=== PATIENT | male | born 1995 | race Caucasian/White ===

== ENCOUNTER 2019-03-22 03:04 | Observation (INO) | payer BC, OTHER ==
[~2019-03-22] VITALS: Ht 175.3 cm; Wt 81.5 kg
[2019-03-22] VITALS (18 sets, daily range): BP systolic 103–127; BP diastolic 59–70; PULSE 46–64; RESP 15–19; Ht 175.3 cm; Wt 81.5 kg
--- NOTE | 2019-03-22 04:57 | ERD ---
ER Documentation Chief Complaint Chief Complaint mid abdominal pain x 4 hours. vomiting 1x HPI 23-year-old male, previously healthy, presents to the emergency department, complaining of sudden onset mid abdominal pain 5 hours ago that radiates to the right lower quadrant, associated with nausea and vomiting x1. The pain is dull, constant, 6/10. The patient denies fever, no chills, no diarrhea or constipation. No history of abdominal surgeries. Last p.o. at 2100 ROS All systems reviewed and are negative except as per history of present illness. Allergies Allergies: Coded Allergies: No Known Drug Allergies (Verified Allergy, Unknown, 03/22/19) FmHx Family History: No diabetes, No coronary disease Physical Exam Vitals Vital Signs Date Temp Pulse Resp B/P (MAP) Pulse Ox O2 O2 Flow FiO2 Time Delivery Rate 03/22/19 97.6 71 18 132/80 100 03:11 (97) Physical Exam Patient alert, oriented, vital signs stable. HEAD: Normocephalic, atraumatic. EYES: PERRLA, EOMI, Sclera and conjunctiva appear normal. NOSE: Clear and patent nostrils. EARS: Canals clear, tympanic membranes WNL. MOUTH: normal lips and tongue, no oral lesions. THROAT: Normal oropharynx, no tonsillar exudates. NECK: Supple, No lymphadenopathy. Full ROM without pain or tenderness. HEART: RRR, no rubs, murmurs, clicks or gallops. LUNGS: Clear to auscultation. ABDOMEN: Guarded, tender to palpation in the right lower quadrant, + rebound, + McBurney. No masses or hepatosplenomegaly. EXTREMITIES: No edema bilaterally. BACK: Full ROM, no deformity, normal back exam NEURO: Cranial nerves grossly intact, no motor or sensory deficit SKIN: No rashes, no petechia. Result Diagram: 03/22/1917 03/22/1917 Results 24 hrs Laboratory Tests Test 03/22/19 05:17 White Blood Count 17.6 10^3/ul Red Blood Count 5.76 10^6/ul Hemoglobin 16.2 g/dl Hematocrit 48.5 % Mean Corpuscular Volume 84.2 fl Mean Corpuscular Hemoglobin 28.1 pg Mean Corpuscular Hemoglobin Concent 33.4 g/dl Red Cell Distribution Width 12.8 % Platelet Count 261 10^3/UL Mean Platelet Volume 9.4 fl Immature Granulocytes % 0.500 % Neutrophils % 84.5 % Lymphocytes % 10.1 % Monocytes % 4.2 % Eosinophils % 0.5 % Basophils % 0.2 % Nucleated Red Blood Cells % 0.0 /100WBC Immature Granulocytes # 0.080 10^3/ul Neutrophils # 14.9 10^3/ul Lymphocytes # 1.8 10^3/ul Monocytes # 0.7 10^3/ul Eosinophils # 0.1 10^3/ul Basophils # 0.0 10^3/ul Nucleated Red Blood Cells # 0.0 10^3/ul Urine Color YELLOW Urine Clarity CLEAR Urine pH 5.0 Urine Specific [place] 1.029 Urine Ketones NEGATIVE mg/dL Urine Nitrite NEGATIVE mg/dL Urine Bilirubin NEGATIVE mg/dL Urine Urobilinogen NEGATIVE mg/dL Urine Leukocyte Esterase NEGATIVE Michael/ul Urine Microscopic RBC 2 /HPF Urine Microscopic WBC 1 /HPF Urine Mucus MODERATE /HPF Urine Hemoglobin 1+ mg/dL Urine Glucose NEGATIVE mg/dL Urine Total Protein NEGATIVE mg/dl Sodium Level 144 mmol/L Potassium Level 4.5 mmol/L Chloride Level 104 mmol/L Carbon Dioxide Level 29 mmol/L Anion Gap 11 Blood Urea Nitrogen 15 mg/dl Creatinine 0.98 mg/dl Est Glomerular Filtrat Rate mL/min > 60 mL/min Glucose Level 113 mg/dl Calcium Level 9.9 mg/dl Total Bilirubin 0.5 mg/dl Direct Bilirubin 0.00 mg/dl Indirect Bilirubin 0.5 mg/dl Aspartate Amino Transf (AST/SGOT) 26 IU/L Alanine Aminotransferase (ALT/SGPT) 44 IU/L Alkaline Phosphatase 50 IU/L Total Protein 8.5 g/dl Albumin 4.9 g/dl Globulin 3.60 g/dl Albumin/Globulin Ratio 1.36 Lipase 207 U/L Current Medications Medications Dose Sig/Soco Start Time Status Last (Trade) Ordered Route PRN Stop Time Admin Dose Reason Admin Sodium 1,000 ml @ Q1H STAT 03/22/19 03/22/19 Chloride 1,000 mls/hr IV 05:08 05:35 03/22/19 06:07 Morphine 2 mg ONCE STAT 03/22/19 DC 03/22/19 Sulfate IV 05:08 05:35 (morphine) 03/22/19 05:30 Ondansetron 4 mg ONCE STAT 03/22/19 DC 03/22/19 HCl (Zofran IV 05:08 05:34 Inj) 03/22/19 05:30 Famotidine 20 mg ONCE STAT 03/22/19 DC 03/22/19 (Pepcid Iv) IV 05:08 05:34 03/22/19 05:30 Ibuprofen 400 mg ONCE ONCE 03/22/19 DC (Motrin) PO 05:30 03/22/19 05:31 Procedures/MDM Vital signs stable. Differential diagnosis include but not limited to: UTI, colitis, gastroenteritis, kidney stones, irritable bowel syndrome, inflammatory bowel syndrome, malabsorption syndrome, cholelithiasis, food intolerance, m edication side effect, pancreatitis, diverticulitis, bowel obstruction. Physical examination and clinical presentation consistent most likely with acute appendicitis. During the ED course the patient remained stable, no new complaints. The patient received treatment with IV fluids and IV medications. I will sign out this patient to Harmony Couch PA-C for further management and disposition. Disclaimer: Inadvertent spelling and grammatical errors are likely due to EHR/dictation software use and do not reflect on the overall quality of patient care. Also, please note that the electronic time recorded on this note does not necessarily reflect the actual time of the patient encounter. Departure Diagnosis: Primary Impression: Abdominal pain Condition: Stable JANET PHILLIPS MD March 22, 2019 04:57
[2019-03-22] MEDS ORDERED: FAMOTIDINE 20 MG INJ IV STA (05:08)
[2019-03-22] MEDS ORDERED: morphine 2 MG INJ IV STA (05:08)
[2019-03-22] MEDS ORDERED: ONDANSETRON 4 MG INJ IV STA (05:08)
[2019-03-22] MEDS ORDERED: SOD CHLORIDE 0.9% 1,000 ML IV STA (05:08)
[2019-03-22] MEDS ORDERED: IBUPROFEN 200 MG TAB PO ONE (05:30)
[2019-03-22] MEDS ORDERED: PIPER-TAZO 3.375 GM IV (PMX) 100 ML IVPB ONE (07:00)
[2019-03-22] MEDS ORDERED: SOD CHLORIDE 0.9% 1,000 ML IV SCH (07:43)
[2019-03-22] MEDS ORDERED: ONDANSETRON 4 MG INJ IV PRN ×4 (08:00→18:00)
[2019-03-22] MEDS ORDERED: ACETAMINOPHEN 325 MG TAB PO PRN ×2 (08:00→18:00)
[2019-03-22] MEDS ORDERED: morphine 2 MG INJ IV PRN ×2 (12:00→18:00)
[2019-03-22] MEDS ORDERED: DEXTROSE 5%-0.45% NACL 1,000 ML IV SCH (12:00)
[2019-03-22] MEDS: DOCUSATE SODIUM 250 MG CAP PO SCH (13:37)
--- NOTE | 2019-03-22 13:38 | HP ---
DATE OF ADMISSION: 03/22/2019 PRESENTING COMPLAINT: Abdominal pain. HISTORY OF PRESENTING COMPLAINT: A 23-year-old male with no past medical history who developed sudden acute abdominal pain to the umbilical area yesterday. The pain lasted for a few minutes and resolved on its own, but kept coming back. He had some nausea and vomiting x1. The pain recurred again . Eventually, the pain became fairly persistent and did not resolve once the patient reported to the Emergency Room where he was treated with pain medicine. CAT scan in the ER was consistent with early appendicitis and a retrocecal appendix. The patient has been admitted for continued management. PAST MEDICAL HISTORY: None. PAST SURGICAL HISTORY: None. ALLERGIES: No known drug allergies. SOCIAL HISTORY: Occasional marijuana use. Denies tobacco, alcohol or other illicit drug use. FAMILY HISTORY: Noncontributory. REVIEW OF SYSTEMS: Per HPI. PHYSICAL EXAMINATION VITAL SIGNS: Temperature 97.5, pulse 60, respirations 16, blood pressure 103/68, saturations 99% on room air. GENERAL: The patient is alert and oriented, no distress. HEENT: Head is normocephalic without evidence of trauma. Pupils are equal and reactive. Mucous membranes are moist. Posterior pharynx is clear of erythema and exudate. NECK: Supple without adenopathy or JVD. CHEST: Clear to auscultation with good air entry on both sides. CARDIOVASCULAR: Heart sounds S1 and S2 without added sounds, no murmurs. ABDOMEN: PE sore at this time in the right lower quadrant, as well as a little bit tender in the umbilical area, but otherwise his abdomen is nondistended and he does have bowel sounds. EXTREMITIES: Negative for edema or deformity. SKIN: Otherwise devoid of rash or jaundice. PSYCHIATRIC: He was calm, cooperative with exam. LABORATORY VALUES: Essentially his CBC was unremarkable, as was a complete metabolic profile, a CT of the abdomen as mentioned earlier did show a retrocecal edematous appendix measuring up to 12 mm. Periappendiceal inflammatory changes consistent with early appendicitis, as well as retained stool. Under CBC, patient did have a leukocytosis of 17,000 with a neutrophil predominance. ASSESSMENT: A 23-year-old male who presented with 1-day history of abdominal pain, admitted and managed for: 1. Acute appendicitis. 2. Chronic constipation. PLAN: Continue IV fluids and antibiotics for now, keep patient n.p.o., provide supportive care, pain control, general surgery consultation has been obtained with Dr. Sotelo via Emergency Room physician, along with his recommendations. Patient will likely benefit from appendectomy; however, will defer to him and further examination as well as dependent on clinical course. Plan of care was discussed with the patient in detail, questions have been answered. For information and clarification, please see patient's chart and my orders. Dictated By: DENNY PITTS MD, BA/ADOLFO Conf#: [id number] DID#: [id number] MTDD
--- NOTE | 2019-03-22 16:36 | PREAC ---
Date/Time of Note Date/Time of Note DATE: 03/22/19 TIME: 16:34 Anesthesia Eval and Record Evaluation Time Pre-Procedure Interview DATE: 03/22/19 TIME: 16:34 Age 23 Sex male NPO: 8 hrs Preoperative diagnosis ACUTE APPENDICITIS Planned procedure LAP APPENDECTOMY Past Medical History Past Medical History: None Surgery & Anesthesia Issues No known issue Meds Anticoagulation: No Beta Travis within 24 hr: No Reason Beta Travis not given: Pt. not on B-Travis No Active Prescriptions or Reported Meds Current Medications Ondansetron HCl (Zofran Inj) 4 mg BRIDGE ORDER PRN IV NAUSEA/VOMITING; Start 03/22/19 at 08:00; Stop 03/23/19 at 07:59 Acetaminophen (Tylenol Tab) 650 mg ER BRIDGE PRN PO .MILD PAIN 1-3 OR TEMP; Start 03/22/19 at 08:00; Stop 03/23/19 at 07:59 Ondansetron HCl (Zofran Inj) 4 mg Q6H PRN IV NAUSEA AND/OR VOMITING; Start 03/22/19 at 12:00 Morphine Sulfate (morphine) 2 mg Q4H PRN IV SEVERE PAIN LEVEL 7-10; Start 03/22/19 at 12:00 Dextrose/Sodium Chloride 1,000 ml @ 125 mls/hr Q8H IV Last administered on 03/22/19at 13:40; Admin Dose 125 MLS/HR; Start 03/22/19 at 12:00 Docusate Sodium (Colace) 250 mg DAILY PO ; Start 03/22/19 at 12:30 Meds reviewed: Yes Allergies Coded Allergies: No Known Drug Allergies (Verified Allergy, Unknown, 03/22/19) Allergies Reviewed: Yes Labs/Studies Labs Reviewed: Reviewed by anesthesiologist Result Diagram: 03/22/1951603/22/1917 Laboratory Tests 03/22/19 05:17 test: N/A Pre-procedure Exam Last vitals Vital Signs Date Temp Pulse Resp B/P (MAP) Pulse Ox O2 O2 Flow FiO2 Time Delivery Rate 03/22/19 98.5 61 16 104/59 98 15:02 (74) 03/22/19 Room Air 10:27 Airway: Adequate mouth opening, Adequate thyromental dist Mallampati: Mallampati II Teeth: Normal Lung: Normal Heart: Normal ASA Physical Status ASA physical status: 2 Emergency: None Planned Anesthetic General/MAC: ETT Nerve block: TAP Planned Pain Management Parenteral pain med Pre-operative Attestations Prior to commencing anesthesia and surgery, the patient was re-evaluated, there was verification of: *The patient's identity *The results of appropriate recent lab work and preoperative vital signs *The above evaluation not changing prior to induction *Anesthetic plan, risk benefits, alternative and complications discussed with patient/family; questions answered; patient/family understands, accepts and wishes to proceed. Tucker Reeves M.D. March 22, 2019 16:36
--- NOTE | 2019-03-22 16:45 | CONS ---
Assessment/Plan Assessment/Plan Assessment/Plan (Daily) Acute appendicitis I discussed laparoscopic, possible open, appendectomy. All benefits, risks, al ternatives discussed in detail. All questions were answered. The patient elects to proceed. Consultation Date/Type/Reason Admit Date/Time March 22, 2019 at 07:44 Date/Time of Note DATE: 03/22/19 TIME: 16:44 Hx of Present Illness The patient is a 23-year-old male who with acute onset of periumbilical pain yesterday before going to sleep. His symptoms then localized to right lower quadrant he had nausea and emesis. He presented to the ER 2:30 in the morning. His work-up was consistent with acute appendicitis I was called for consultation. Past Medical History Medical History: no pertinent history Home Meds No Active Prescriptions or Reported Meds Medications Current Medications Ondansetron HCl (Zofran Inj) 4 mg BRIDGE ORDER PRN IV NAUSEA/VOMITING; Start 03/22/19 at 08:00; Stop 03/23/19 at 07:59 Acetaminophen (Tylenol Tab) 650 mg ER BRIDGE PRN PO .MILD PAIN 1-3 OR TEMP; Start 03/22/19 at 08:00; Stop 03/23/19 at 07:59 Ondansetron HCl (Zofran Inj) 4 mg Q6H PRN IV NAUSEA AND/OR VOMITING; Start 03/22/19 at 12:00 Morphine Sulfate (morphine) 2 mg Q4H PRN IV SEVERE PAIN LEVEL 7-10; Start 03/22/19 at 12:00 Dextrose/Sodium Chloride 1,000 ml @ 125 mls/hr Q8H IV Last administered on 03/22/19at 13:40; Admin Dose 125 MLS/HR; Start 03/22/19 at 12:00 Docusate Sodium (Colace) 250 mg DAILY PO ; Start 03/22/19 at 12:30 Hydromorphone HCl (Dilaudid) 0.2 mg PACU PRN IV MILD PAIN 1-3; Start 03/22/19 at 17:00; Stop 03/22/19 at 22:00; Status UNV Hydromorphone HCl (Dilaudid) 0.4 mg PACU PRN IV MOD PAIN 4-6; Start 03/22/19 at 17:00; Stop 03/22/19 at 22:00; Status UNV Hydromorphone HCl (Dilaudid) 0.6 mg PACU PRN IV SEVERE PAIN 7-10; Start 03/22/19 at 17:00; Stop 03/22/19 at 22:00; Status UNV Fentanyl (Sublimaze) 25 mcg PACU ORDER PRN IV MILD PAIN 1-3; Start 03/22/19 at 17:00; Stop 03/22/19 at 22:00; Status UNV Fentanyl (Sublimaze) 50 mcg PACU ORDER PRN IV MOD PAIN 4-6; Start 03/22/19 at 17:00; Stop 03/22/19 at 22:00; Status UNV Fentanyl (Sublimaze) 75 mcg PACU ORDER PRN IV SEVERE PAIN 7-10; Start 03/22/19 at 17:00; Stop 03/22/19 at 22:00; Status UNV Oxycodone/ Acetaminophen (Percocet (5/ 325)) 1 tab PACU ORDER PRN PO .PAIN 1-5; Start 03/22/19 at 17:00; Stop 03/22/19 at 22:00; Status UNV Oxycodone/ Acetaminophen (Percocet (5/ 325)) 2 tab PACU ORDER PRN PO .PAIN 6-10; Start 03/22/19 at 17:00; Stop 03/22/19 at 22:00; Status UNV Ondansetron HCl (Zofran Inj) 4 mg PACU ORDER PRN IV NAUSEA/VOMITING; Start 03/22/19 at 17:00; Stop 03/22/19 at 22:00; Status UNV Trimethobenzamide HCl (Tigan) 200 mg PACU ORDER PRN IM NAUSEA/VOMITING; Start 03/22/19 at 17:00; Stop 03/22/19 at 22:00; Status UNV Labetalol HCl (Labetalol) 5 mg PACU ORDER PRN IV HIGH BLOOD PRESSURE; Start 03/22/19 at 17:00; Stop 03/22/19 at 22:00; Status UNV Hydralazine HCl (Apresoline) 5 mg PACU ORDER PRN IV HIGH BLOOD PRESSURE; Start 03/22/19 at 17:00; Stop 03/22/19 at 22:00; Status UNV Ephedrine Sulfate 5 mg PACU ORDER PRN IV BLOOD PRESSURE SUPPORT; Start 03/22/19 at 17:00; Stop 03/22/19 at 22:00; Status UNV Albuterol (Proventil 0.083% (Neb)) 2.5 mg PACU ORDER PRN HHN .WHEEZING; Start 03/22/19 at 17:00; Stop 03/22/19 at 22:00; Status UNV Ipratropium [place] (Atrovent 0.02% (Neb)) 0.5 mg PACU ORDER PRN HHN .WHEEZING; Start 03/22/19 at 17:00; Stop 03/22/19 at 22:00; Status UNV Meperidine HCl (Demerol) 25 mg PACU ORDER PRN IV .RIGORS; Start 03/22/19 at 17:00; Stop 03/22/19 at 22:00; Status UNV Diphenhydramine HCl (Benadryl) 25 mg PACU ORDER PRN IV .PRURITUS; Start 03/22/19 at 17:00; Stop 03/22/19 at 22:00; Status UNV Midazolam HCl (Versed) 0.5 mg PACU ORDER PRN IV .ANXIETY; Start 03/22/19 at 17:00; Stop 03/22/19 at 22:00; Status UNV Allergies: Coded Allergies: No Known Drug Allergies (Verified Allergy, Unknown, 03/22/19) Past Surgical History Past Surgical Hx: no surgical history Family History Significant Family History: no pertinent family hx Social History Alcohol Use: rarely Smoking Status: Never smoker Drug Use: none Exam/Review of Systems Exam Vitals Vital Signs Date Temp Pulse Resp B/P (MAP) Pulse Ox O2 O2 Flow FiO2 Time Delivery Rate 03/22/19 98.5 61 16 104/59 98 15:02 (74) 03/22/19 Room Air 10:27 Results Result Diagram: 03/22/19 0517 03/22/19 0517 Results 24hrs Laboratory Tests Test 03/22/19 05:17 03/22/19 12:19 White Blood Count 17.6 H Red Blood Count 5.76 Hemoglobin 16.2 Hematocrit 48.5 Mean Corpuscular Volume 84.2 Mean Corpuscular Hemoglobin 28.1 L Mean Corpuscular Hemoglobin Concent 33.4 Red Cell Distribution Width 12.8 Platelet Count 261 Mean Platelet Volume 9.4 Immature Granulocytes % 0.500 H Neutrophils % 84.5 H Lymphocytes % 10.1 L Monocytes % 4.2 Eosinophils % 0.5 Basophils % 0.2 Nucleated Red Blood Cells % 0.0 Immature Granulocytes # 0.080 H Neutrophils # 14.9 H Lymphocytes # 1.8 Monocytes # 0.7 Eosinophils # 0.1 Basophils # 0.0 Nucleated Red Blood Cells # 0.0 Urine Color YELLOW Urine Clarity CLEAR Urine pH 5.0 Urine Specific [place] 1.029 Urine Ketones NEGATIVE Urine Nitrite NEGATIVE Urine Bilirubin NEGATIVE Urine Urobilinogen NEGATIVE Urine Leukocyte Esterase NEGATIVE Urine Microscopic RBC 2 Urine Microscopic WBC 1 Urine Mucus MODERATE Urine Hemoglobin 1+ H Urine Glucose NEGATIVE Urine Total Protein NEGATIVE Sodium Level 144 Potassium Level 4.5 Chloride Level 104 Carbon Dioxide Level 29 Anion Gap 11 Blood Urea Nitrogen 15 Creatinine 0.98 Est Glomerular Filtrat Rate mL/min > 60 Glucose Level 113 Calcium Level 9.9 Total Bilirubin 0.5 Direct Bilirubin 0.00 Indirect Bilirubin 0.5 Aspartate Amino Transf (AST/SGOT) 26 Alanine Aminotransferase (ALT/SGPT) 44 Alkaline Phosphatase 50 Total Protein 8.5 H Albumin 4.9 Globulin 3.60 H Albumin/Globulin Ratio 1.36 Lipase 207 Prothrombin Time 12.3 Prothrombin Time Ratio 1.0 INR International Normalized Ratio 0.90 Activated Partial Thromboplast Time 29.1 Imaging Imaging DIAGNOSTIC IMAGING REPORT Patient: ALLYSSA MALAVE : 1995 Age: 23 Sex: M MR #: [id number] DOS: 03/22/19 0508 Ordering MD: JANET PHILLIPS MD Location: [facility] Room/Bed: PROCEDURE: CT ABDOMEN/PELVIS WITHOUT CONTRAST CLINICAL INDICATION: 23-year-old male with right lower quadrant pain. TECHNIQUE: The study was performed utilizing a [employer] VCT 64-slice CT scanner. Direct axial sections were obtained through the abdomen and pelvis without the use of intravenous contrast material. Sagittal and coronal reformations were obtained. One or more of the following dose reduction techniques were utilized: automated exposure control, adjustment of the mA and/or kV according to patient's size, use of iterative reconstruction technique. DICOM images are available. The images were reviewed on a PACS workstation. CTD/vol = 8.92 mGy; Total Exam DLP = 555.75 mGy.cm. COMPARISON: None. FINDINGS: The lung bases are unremarkable. There is no evidence for significant pleural effusion. The liver has a normal size and contour without focal areas of abnormal density. No intrahepatic nor extrahepatic biliary ductal dilatation is seen. The gallbladder demonstrates no wall thickening nor pericholecystic fluid. No biliary stones are evident. The pancreas is without areas of abnormal attenuation. The spleen is identified and has a normal size without abnormal density. The adrenal glands are unremarkable. The kidneys are without abnormal density. No hydroureteronephrosis nor nephroureterolithiasis is evident. The urinary bladder contains a small volume of urine. There is mild retained stool identified throughout the colon without evidence for bowel obstruction. The appendix is retrocecal and diffusely thickened edematous measuring up to 12 mm with minimal periappendiceal inflammatory changes consistent with early acute appendicitis. Shotty mesenteric/right lower quadrant lymph nodes are seen. There is no significant free fluid. The prostate is not enlarged. The aortoiliac vessels are without aneurysmal dilatation. The osseous structures are intact. IMPRESSION: 1. Diffusely retrocecal edematous appendix measuring up to 12 mm with minimal p eriappendiceal inflammatory changes most consistent with early acute appendicitis. 2. Retained stool throughout the colon without obstruction. 3. Shotty mesenteric lymph nodes. .Sandeep Rivera MD, Date Time Electronically viewed and signed by .Sandeep Rivera MD, MD on 03/22/2019 06:43 .M/ CC: JANET PHILLIPS MD [id number] Medications Medication Current Medications Ondansetron HCl (Zofran Inj) 4 mg BRIDGE ORDER PRN IV NAUSEA/VOMITING; Start 03/22/19 at 08:00; Stop 03/23/19 at 07:59 Acetaminophen (Tylenol Tab) 650 mg ER BRIDGE PRN PO .MILD PAIN 1-3 OR TEMP; Start 03/22/19 at 08:00; Stop 03/23/19 at 07:59 Ondansetron HCl (Zofran Inj) 4 mg Q6H PRN IV NAUSEA AND/OR VOMITING; Start 03/22/19 at 12:00 Morphine Sulfate (morphine) 2 mg Q4H PRN IV SEVERE PAIN LEVEL 7-10; Start 03/22/19 at 12:00 Dextrose/Sodium Chloride 1,000 ml @ 125 mls/hr Q8H IV Last administered on 03/22/19at 13:40; Admin Dose 125 MLS/HR; Start 03/22/19 at 12:00 Docusate Sodium (Colace) 250 mg DAILY PO ; Start 03/22/19 at 12:30 Hydromorphone HCl (Dilaudid) 0.2 mg PACU PRN IV MILD PAIN 1-3; Start 03/22/19 at 17:00; Stop 03/22/19 at 22:00; Status UNV Hydromorphone HCl (Dilaudid) 0.4 mg PACU PRN IV MOD PAIN 4-6; Start 03/22/19 at 17:00; Stop 03/22/19 at 22:00; Status UNV Hydromorphone HCl (Dilaudid) 0.6 mg PACU PRN IV SEVERE PAIN 7-10; Start 03/22/19 at 17:00; Stop 03/22/19 at 22:00; Status UNV Fentanyl (Sublimaze) 25 mcg PACU ORDER PRN IV MILD PAIN 1-3; Start 03/22/19 at 17:00; Stop 03/22/19 at 22:00; Status UNV Fentanyl (Sublimaze) 50 mcg PACU ORDER PRN IV MOD PAIN 4-6; Start 03/22/19 at 17:00; Stop 03/22/19 at 22:00; Status UNV Fentanyl (Sublimaze) 75 mcg PACU ORDER PRN IV SEVERE PAIN 7-10; Start 03/22/19 at 17:00; Stop 03/22/19 at 22:00; Status UNV Oxycodone/ Acetaminophen (Percocet (5/ 325)) 1 tab PACU ORDER PRN PO .PAIN 1-5; Start 03/22/19 at 17:00; Stop 03/22/19 at 22:00; Status UNV Oxycodone/ Acetaminophen (Percocet (5/ 325)) 2 tab PACU ORDER PRN PO .PAIN 6-10; Start 03/22/19 at 17:00; Stop 03/22/19 at 22:00; Status UNV Ondansetron HCl (Zofran Inj) 4 mg PACU ORDER PRN IV NAUSEA/VOMITING; Start at 17:00; Stop 03/22/19 at 22:00; Status UNV Trimethobenzamide HCl (Tigan) 200 mg PACU ORDER PRN IM NAUSEA/VOMITING; Start 03/22/19 at 17:00; Stop 03/22/19 at 22:00; Status UNV Labetalol HCl (Labetalol) 5 mg PACU ORDER PRN IV HIGH BLOOD PRESSURE; Start 03/22/19 at 17:00; Stop 03/22/19 at 22:00; Status UNV Hydralazine HCl (Apresoline) 5 mg PACU ORDER PRN IV HIGH BLOOD PRESSURE; Start 03/22/19 at 17:00; Stop 03/22/19 at 22:00; Status UNV Ephedrine Sulfate 5 mg PACU ORDER PRN IV BLOOD PRESSURE SUPPORT; Start 03/22/19 at 17:00; Stop 03/22/19 at 22:00; Status UNV Albuterol (Proventil 0.083% (Neb)) 2.5 mg PACU ORDER PRN HHN .WHEEZING; Start 03/22/19 at 17:00; Stop 03/22/19 at 22:00; Status UNV Ipratropium [place] (Atrovent 0.02% (Neb)) 0.5 mg PACU ORDER PRN HHN .WHEEZING; Start 03/22/19 at 17:00; Stop 03/22/19 at 22:00; Status UNV Meperidine HCl (Demerol) 25 mg PACU ORDER PRN IV .RIGORS; Start 03/22/19 at 17:00; Stop 03/22/19 at 22:00; Status UNV Diphenhydramine HCl (Benadryl) 25 mg PACU ORDER PRN IV .PRURITUS; Start 03/22/19 at 17:00; Stop 03/22/19 at 22:00; Status UNV Midazolam HCl (Versed) 0.5 mg PACU ORDER PRN IV .ANXIETY; Start 03/22/19 at 17:00; Stop 03/22/19 at 22:00; Status UNV AIXA SPEAR MD March 22, 2019 16:45
[2019-03-22] MEDS ORDERED: MIDAZOLAM 1 MG/ML 2 ML INJ IV PRN (17:00)
[2019-03-22] MEDS ORDERED: MEPERIDINE 25 MG INJ IV PRN (17:00)
[2019-03-22] MEDS ORDERED: IPRATROPIUM (NEB) 0.5 MG/2.5 ML AMP HHN PRN (17:00)
[2019-03-22] MEDS ORDERED: DIPHENHYDRAMINE 50 MG INJ IV PRN (17:00)
[2019-03-22] MEDS ORDERED: FENTAnyl 50 MCG/ML VIAL IV PRN ×3 (17:00)
[2019-03-22] MEDS ORDERED: EPHEDrine 25 MG/5 ML SYG IV PRN (17:00)
[2019-03-22] MEDS ORDERED: TRIMETHOBENZAMIDE 100 MG/ML VIAL IM PRN (17:00)
[2019-03-22] MEDS ORDERED: HYDROmorphONE 1 MG/5 ML IV SYRINGE IV PRN ×3 (17:00)
[2019-03-22] MEDS ORDERED: OXYCODONE/ACETAMINOPHEN (5/325) TAB PO PRN ×2 (17:00)
[2019-03-22] MEDS ORDERED: hydrALAzine 20 MG INJ IV PRN (17:00)
[2019-03-22] MEDS ORDERED: ALBUTEROL 0.083% (NEB) 2.5 MG/3 ML AMP HHN PRN (17:00)
[2019-03-22] MEDS ORDERED: DESFLURANE 15 MIN ONE (17:00)
[2019-03-22] MEDS ORDERED: LABETALOL HCL 20MG INJ IV PRN (17:00)
[2019-03-22] MEDS ORDERED: DEXAMETHASONE 4 MG/ML 5 ML INJ ONE (17:02)
[2019-03-22] MEDS ORDERED: CEFAZOLIN 1 GM INJ ONE (17:02)
[2019-03-22] MEDS ORDERED: ROCURONIUM 50 MG INJ ONE (17:02)
[2019-03-22] MEDS ORDERED: GLYCOPYRROLATE 0.4 MG INJ ONE (17:02)
[2019-03-22] MEDS ORDERED: PROPOFOL 20 ML ONE (17:02)
[2019-03-22] MEDS ORDERED: NEOSTIGMINE 3 MG/3 ML SYRINGE ONE (17:02)
[2019-03-22] MEDS ORDERED: MIDAZOLAM 1 MG/ML 2 ML INJ ONE (17:02)
[2019-03-22] MEDS ORDERED: FENTAnyl 50 MCG/ML VIAL ONE (17:02)
[2019-03-22] MEDS ORDERED: ONDANSETRON 4 MG INJ ONE (17:02)
[2019-03-22] MEDS ORDERED: BUPIVACAINE 0.25% (MPF) 30 ML INJ ONE (17:12)
[2019-03-22] MEDS ORDERED: LIDOCAINE 1%/EPI (1:100,000) (MDV) 20 ML ONE (17:12)
--- NOTE | 2019-03-22 17:18 | OPR ---
Date/Time of Note Date/Time of Note DATE: 03/22/19 TIME: 17:18 Operative Report Preoperative Diagnosis Acute appendicitis Postoperative Diagnosis Same Operation/Procedure Performed Laparoscopic appendectomy Surgeon see signature line Material Controller None Anesthesia Type: general Anesthesiologist: Tucker Reeves M.D. Estimated Blood Loss: minimal Transfusion none Specimen Appendix Grafts/Implants none Complications none Pt Condition Post Procedure: stable Disposition: PACU Indications The patient is a 23-year-old male with acute appendicitis. I discussed laparoscopic, possible open, appendectomy with the patient. All benefits, risks, alternatives were discussed in detail. All questions answered. The patient elected to proceed Procedure Description The patient was brought to operative room placed supine on the table. After preop antibiotics and SCDs were applied, the patient was intubated. The abdomen was cleaned, prepped, draped in usual sterile fashion. All incisions were infiltrated with half percent lidocaine with epinephrine. A 5 mm incision was made in the umbilicus. Using a 5 by laparoscope obtained trocar, the abdomen was was entered and insufflated to 15 mmHg CO2. The following trochars in place and direct vision: A right lower quadrant 5 mm left lower quadrant 12 mm I visualized the abdomen and adherent to the right side of the abdominal wall was the terminal ileum. I establish a plane between the abdominal wall and terminal ileum and bluntly brought the terminal ileum medially. I then identified my appendix. It was gangrenous. The base was not involved. I made a rent through the mesentery at the base of the appendix. I then divided the base of the appendix to the cecum with a 35 mm Endo linear cutter white load. . I was able to elevate the appendix. The mesentery was then divided with a 35 mm Endo linear cutter white load. The appendix was placed in Endo Catch bag removed and the 12 mm trocar site. I irrigated out the right lower quadrant and pelvis until effluent was clear. I visualized the staple lines. They were hemostatic. I desufflated the abdomen and removed all trochars. The fascia of the 12 mm trocar site was closed with 0 Vicryl. Skin incisions were closed with 4-0 Monocryl, Mastisol, and Steri-Strips marked muscle Steri-Strips. The patient tolerated the procedure well, was extubated ER, and transferred to the recovery room in stable condition. AIXA SPEAR MD March 22, 2019 17:18
[2019-03-22] MEDS ORDERED: PIPER-TAZO 3.375 GM IV (PMX) 100 ML ONE (17:34)
[2019-03-22] MEDS ORDERED: KETOROLAC 30 MG INJ ONE (17:51)
[2019-03-22] MEDS: D5-NS + KCL 20 MEQ 1,000 ML IV SCH ×2 (17:57→20:10)
[2019-03-22] MEDS: PIPER-TAZO 3.375 GM IV (PMX) 100 ML IVPB SCH ×2 (18:00→23:19)
[2019-03-22] MEDS ORDERED: HYDROCODONE/APAP (5/325) TAB PO PRN (18:00)
--- NOTE | 2019-03-22 18:04 | SIPON ---
Date/Time of Note Date/Time of Note DATE: 03/22/19 TIME: 18:04 Operative Report Preoperative Diagnosis Acute appendicitis Postoperative Diagnosis Same Operation/Procedure Performed Laparoscopic appendectomy Surgeon see signature line psychological assistant None Anesthesia: general Estimated blood loss: minimal Transfusion Required none Specimen Appendix Grafts/Implants none Complications none AIXA SPEAR MD March 22, 2019 18:04
--- NOTE | 2019-03-22 18:07 | PAC ---
Date/Time of Note Date/Time of Note DATE: 03/22/19 TIME: 18:07 Post-Anesthesia Notes Post-Anesthesia Note Last documented vital signs Vital Signs Date Temp Pulse Resp B/P (MAP) Pulse Ox O2 O2 Flow FiO2 Time Delivery Rate 03/22/19 98.5 61 16 104/59 98 15:02 (74) 03/22/19 Room Air 10:27 Activity: WNL Respiratory function: WNL Cardiovascular function: WNL Mental status: Baseline Pain reasonably controlled: Yes Hydration appropriate: Yes Nausea/Vomiting absent: Yes Tucker Reeves M.D. March 22, 2019 18:07
[2019-03-22] MEDS ORDERED: HYDROmorphONE 0.5 MG/0.5 ML SYG IV PRN (18:30)
[2019-03-22] MEDS: IBUPROFEN 600 MG TAB PO PRN (23:29)
[2019-03-23 01:48] VITALS: BP 108/56; PULSE 84; RESP 18
[2019-03-23] MEDS: PIPER-TAZO 3.375 GM IV (PMX) 100 ML IVPB SCH ×2 (05:36→11:45)
[2019-03-23] MEDS ORDERED: ENOXAPARIN 40 MG/0.4 ML SYG SC SCH (07:00)
[2019-03-23] MEDS: D5-NS + KCL 20 MEQ 1,000 ML IV SCH (07:19)
[2019-03-23 07:58] VITALS: BP 105/62; PULSE 64; RESP 19
[2019-03-23] MEDS: DOCUSATE SODIUM 250 MG CAP PO SCH (08:49)
[2019-03-23] MEDS: IBUPROFEN 600 MG TAB PO PRN (11:44)
--- NOTE | 2019-03-23 12:44 | PDOCDIS ---
Discharge Instructions CONDITION [id number] Patient Condition: [id number] Stable ACTIVITY: [id number] Activity Restrictions: [id number] Slowly Increase Activity Rest between Activity Avoid heavy lifting FOLLOW UP/APPOINTMENTS Follow-up Plan Followup with your primary doctor within the next 1-2 weeks. If you don't have one please let someone know, we can give you resources that may help you pick one. You may call Dr Sterling Shaffer's office. he's accepting new patients Name, Degree: Sterling Shaffer MD Specialty: Internal Medicine Comments: Office Address: [address] [place] [address] [place], [place] [id number] Office Office You may also call your insurance company to assign one to you. Review your medication list with your nurse before leaving and if you need new prescriptions please let your nurse know. I may have made changes to your home medications or given you new pres criptions, please let your primary doctor know as well. Stay compliant with your medications and report any side effects to your PCP or pharmacist. Return to the ER if you have any concerns and cannot reach your doctors or call your insurance company, they usually have a nurse that can help you. DENNY PITTS March 23, 2019 12:44
[2019-03-23] MEDS ORDERED: DOCU250C58 PO (12:46)
--- NOTE | 2019-03-23 12:46 | DS ---
Date/Time of Note Date/Time of Note DATE: 03/23/19 TIME: 12:45 Discharge Summary Admission/Discharge Info Admit Date/Time March 22, 2019 at 07:44 Discharge Date/Time Discharge Diagnosis A 23-year-old male who presented with 1-day history of abdominal pain, admitted and managed for: 1. Acute appendicitis status post laparoscopic appendectomy, 2. Chronic constipation. . Patient Condition: Stable Consults General surgery: Milind Sotelo MD . Procedures Laparoscopic appendectomy . Hospital Course 23-year-old male who was admitted with abdominal pain and CT findings concerning for early appendicitis. Patient underwent laparoscopic appendectomy without complications. Surgery was done on March 22, 2019. Patient at this time is been cleared for discharge by general surgery. . Home Meds Active Scripts Docusate Sodium* (Colace*) 250 Mg Capsule, 250 MG PO DAILY for 14 Days, #14 CAP Prov:DENNY PITTS 03/23/19 Follow-up Plan Followup with your primary doctor within the next 1-2 weeks. If you don't have one please let someone know, we can give you resources that may help you pick one. You may call Dr Sterling Shaffer's office. he's accepting new patients Name, Degree: Sterling Shaffer MD Specialty: Internal Medicine Comments: Office Address: [address] [place] [address] Office Office You may also call your insurance company to assign one to you. Review your medication list with your nurse before leaving and if you need new prescriptions please let your nurse know. I may have made changes to your home medications or given you new prescriptions, please let your primary doctor know as well. Stay compliant with your medications and report any side effects to your PCP or pharmacist. Return to the ER if you have any concerns and cannot reach your doctors or call your insurance company, they usually have a nurse that can help you. Primary Care Provider Care Physician No Primary Time spent on discharge: < 30 minutes Pending Labs Laboratory Tests Test 03/23/19 04:28 Sodium Level 141 mmol/L (135-144) Potassium Level 4.2 mmol/L (3.5-5.1) Chloride Level 109 mmol/L (97-110) Carbon Dioxide Level 24 mmol/L (21-31) Anion Gap 8 (5-13) Blood Urea Nitrogen 9 mg/dl (7-20) Creatinine 0.85 mg/dl (0.61-1.24) Est Glomerular Filtrat Rate mL/min > 60 mL/min (>60) Glucose Level 147 mg/dl (70-220) Calcium Level 9.5 mg/dl (8.4-10.2) Magnesium Level 1.9 mg/dl (1.7-2.5) DENNY PITTS March 23, 2019 12:46
== END 2019-03-23 17:25 | disposition home or self-care (01) ==
LOC: FTE 03:04 → 2NE 07:44
PROVIDERS: ADMIT Family Medicine; ATTEND Family Medicine
DX: K35.80 Unspecified acute appendicitis (principal); K59.00 Constipation, unspecified
CPT/HCPCS: 36415; 44970; 74176; 80048; 80053; 81001; 83690; 83735; 85025; 85610; 85730; 88304; 96365; 96375; 99285; G0378; J1100; J1650; J1885; J2175; J2250; J2270; J2405; J2543; J2710; J3010; J3480; J7030; J7042; J0690